=== PATIENT | male | born 1975 | race Caucasian/White ===

== ENCOUNTER 2018-06-02 17:24 | Inpatient (IN) | payer OTHER ==
[~2018-06-02] VITALS: Ht 177.8 cm; Wt 78.3 kg
[2018-06-02 17:32] VITALS: Ht 177.8 cm; Wt 78.3 kg
[2018-06-02] MEDS ORDERED: SOD CHLORIDE 0.9% 1,000 ML IV STA (17:50)
[2018-06-02] MEDS ORDERED: HYDR-3980 PO (19:22)
[2018-06-02] MEDS ORDERED: BENA10TA4 PO (19:22)
[2018-06-02] MEDS ORDERED: LEVE10006 PO (19:24)
[2018-06-02] MEDS ORDERED: LAMO150T2 PO (19:26)
[2018-06-02] MEDS ORDERED: DOCU250C17 PO (19:26)
[2018-06-02] MEDS ORDERED: ACETAMINOPHEN 325 MG TAB PO PRN (21:30)
[2018-06-02] MEDS ORDERED: ONDANSETRON 4 MG INJ IV PRN (21:30)
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
[2018-06-02] MEDS ORDERED: morphine 4 MG/ML VIAL IV STA (23:34)
[2018-06-03] VITALS: BP 138/89; PULSE 82
[2018-06-03] MEDS ORDERED: ACETAMINOPHEN 325 MG TAB PO PRN (00:30)
[2018-06-03 01:25] VITALS: PULSE 90
[2018-06-03] MEDS ORDERED: morphine SULFATE/PF (2 MG/2 ML) SYG IV PRN ×2 (02:00→02:30)
[2018-06-03] MEDS: morphine 4 MG/ML VIAL IV PRN ×2 (02:24→06:03)
[2018-06-03] MEDS ORDERED: morphine 4 MG/ML VIAL IV PRN (02:40)
[2018-06-03 04:00] VITALS: BP 130/92; PULSE 93; PULSE 94
[2018-06-03] MEDS ORDERED: PANTOPRAZOLE (EC) 40 MG TAB PO SCH (06:00)
--- NOTE | 2018-06-03 06:52 | NUR ---
Pt. arrived on tele unit at 0113. Pt. on tele monitor. Vital signs WNL. Pt complained of pain. Morphine given per Dr. Nowak. Hourly rounding completed. Bed alarm on. Call light within reach. Will endorse continuity of care to day shift.
[2018-06-03 07:14] VITALS: BP 137/81; PULSE 82; RESP 18
--- NOTE | 2018-06-03 07:21 | NUR ---
Nurse Notes: Pt. complained of pain 10/10 in his head. Morphine administered. Dr. Nowak notified and aware. STAT CT scan ordered.
[2018-06-03 08:07] VITALS: PULSE 106
[2018-06-03] MEDS ORDERED: MULTIVITAMINS 10 ML, FOLIC ACID 1 MG in SOD CHLORIDE 0.9% 1,000 ML IVPB SCH (09:00)
--- NOTE | 2018-06-03 09:59 | PDOCDIS ---
Discharge Instructions CONDITION [id number] Patient Condition: [id number] Good HOME CARE INSTRUCTIONS: [id number] Diet Instructions: [id number] FOLLOW UP/APPOINTMENTS Follow-up Plan Dr Saenz in JAQUI MAS MD Jun 03, 2018 09:59
--- NOTE | 2018-06-03 10:00 | NUR ---
SW: ETOH ALBARO met iwjose this 42-year-old French speaking male at bedside regarding ETOH abuse. Patient states he lives at home with his and children (ages 16, 18 and 20) at [id number] [place] [address]. States he is unemployed and has no source of income. States his Nina financially supports him. States that she is his primary mode of transportation, as he does not work. Patient denies having an AHCD, and he verbally designated his Nina Bruce ([phone]) as surrogate medical spokesperson. SW provided patient with resources for GR. Substance abuse: Patient states that he drinks about 1/2 bottle of vodka a few times a week. States that he has been drinking excessively since he was in his 20's. States that he did go to rehab called [facility] about 4 years ago, and states he was sober for about 1 year after his rehab program. Patient states he does not want to go to rehab, but states he is open to going to AA meetings. SW provided patient with resources for AA, but also provided him resources for residential and outpatient alcohol treatment programs. Addendum: 06/03/18 at 1429 by GERALD BULLOCK Mental Health: Patient denies any history of anxiety, depression or mental illness. Denies any past/ present thoughts, ideations or plans of suicide/ homicide. Patient denies any questions/ concerns at this time. SW remains available as needed throughout patient's treatment process.
--- NOTE | 2018-06-03 11:43 | NUR ---
HR: Dr Feliciano notified regarding increase HR in 150's upon activity, no new orders given, pt cleared for DC.
[2018-06-03 11:50] VITALS: BP 149/90; PULSE 90; RESP 20
--- NOTE | 2018-06-03 12:59 | NUR ---
Discharge note: pt discharged to home, VS stable. Dr Feliciano cleared pt for discharge. discharge packet reviewed and provided to pt, pt verbalized understanding of teachings and packet's content. at bedside. all belongings packed and with pt.
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
== END 2018-06-03 12:54 | disposition home or self-care (01) | DRG 87 ==
LOC: E/R 17:24 → TEL 21:31
PROVIDERS: ADMIT Internal Medicine; ATTEND Internal Medicine
DX: S06.5X0A Traumatic subdural hemorrhage without loss of consciousness, initial encounter (principal); I10 Essential (primary) hypertension; F10.229 Alcohol dependence with intoxication, unspecified; Y90.8 Blood alcohol level of 240 mg/100 ml or more; Z98.890 Other specified postprocedural states; W19.XXXA Unspecified fall, initial encounter; Y92.149 Unspecified place in prison as the place of occurrence of the external cause
CPT/HCPCS: 36415; 70450; 72125; 80048; 80076; 80307; 85025; 85610; 85730; J2270; J2405; J7030